=== PATIENT | male | born 1955 | race Caucasian/White ===

== ENCOUNTER 2020-09-16 09:20 | Outpatient (REF) | payer OTHER, SELFPAY ==
[2020-09-16 11:08] LABS: MANUAL DIFF FLAG NO
[2020-09-16 11:19] LABS: Basophils Absolute Auto 0.1 X10*3/uL (0.0-0.2); Basophils Percent Auto 0.7 % (0-2); Eosinophils Absolute Auto 0.2 X10*3/uL (0.0-0.4); Eosinophils Percent Auto 2.9 % (0-4); Hematocrit 46.6 % (42-52); Hemoglobin 15.5 g/dl (14.0-18.0); Imm Gran Abs Auto 0.02 X10*3/uL (0.00-0.03); Imm Gran Pct Auto 0.3 % (0.0-0.4); Lymphocytes Absolute Auto 1.9 X10*3/uL (1.2-4.9); Lymphocytes Percent Auto 27.5 % (20-40); Mean Corpuscular HGB Conc 33.3 g/dl (31.0-36.0); Mean Corpuscular Hemoglobin 31.8 pg (27.0-33.0); Mean Corpuscular Volume 95.5 fL (80-98); Mean Platelet Volume 9.1 fL (9.4-12.4); Monocytes Absolute Auto 0.5 X10*3/uL (0.1-1.2); Monocytes Percent Auto 6.5 % (2-11); Neutrophils Absolute Auto 4.3 X10*3/uL (2.0-8.3); Neutrophils Percent Auto 62.1 % (45-73); Platelet Count 269 X10*3/uL (160-400); Red Blood Count 4.88 X10*6/uL (4.60-5.80); Red Cell Distribution Width 12.1 % (11.0-16.0)
[2020-09-16 12:03] LABS: Prostate Specific Antigen 1.02 ng/mL (<0.05-4.0)
[2020-09-16 12:09] LABS: Alanine Aminotransferase 19 U/L (0-40); Albumin Level 4.4 g/dL (3.5-5.0); Alkaline Phosphatase 59 U/L (39-117); Anion Gap 13 (12-20); Aspartate Amino Transferase 20 U/L (5-37); Bilirubin Total 0.7 mg/dL (0.0-1.0); Blood Urea Nitrogen 16 mg/dL (9-16); Carbon Dioxide 27 mmol/L (22-29); Chloride 102 mmol/L (96-108); Estimated Glomerular Filt Rate > 60; Glucose Random 95 mg/dL (60-115); Potassium 4.2 mmol/L (3.3-5.1); Sodium 138 mmol/L (135-145); Total Protein 7.1 g/dL (6.5-8.0)
== END 2020-09-16 09:21 | disposition home or self-care (01) ==
LOC: HO.HMGCLDS 09:20
PROVIDERS: PCP Nurse Practitioner Family; Visit Provider Nurse Practitioner Family
DX: R10.2 Pelvic and perineal pain (principal)
CPT/HCPCS: 36415; 80053; 84153; 85025

== ENCOUNTER 2020-11-18 10:43 | Outpatient (REF) | payer OTHER, SELFPAY ==
[2020-11-18 14:23] LABS: Cholesterol 195 mg/dL; HDL Cholesterol 53 mg/dL; LDL Cholesterol Calculated 131 mg/dl; Triglycerides 57 mg/dL
[2020-11-18 14:45] LABS: TSH reflex Free T4 0.77 uIU/mL (0.32-4.0)
== END 2020-11-18 10:44 | disposition home or self-care (01) ==
LOC: HO.HMGCLDS 10:43
PROVIDERS: PCP Nurse Practitioner Family; Visit Provider Nurse Practitioner Family
DX: Z00.00 Encounter for general adult medical examination without abnormal findings (principal); Z13.29 Encounter for screening for other suspected endocrine disorder; Z13.220 Encounter for screening for lipoid disorders; Z12.5 Encounter for screening for malignant neoplasm of prostate
CPT/HCPCS: 36415; 80061; 84443

== ENCOUNTER 2021-11-22 11:14 | Outpatient (REF) | payer OTHER, SELFPAY ==
[2021-11-22 14:16] LABS: Alanine Aminotransferase 24 U/L (0-40); Albumin Level 4.5 g/dL (3.5-5.0); Alkaline Phosphatase 62 U/L (39-117); Anion Gap 11 (12-20); Aspartate Amino Transferase 22 U/L (5-37); Bilirubin Total 0.7 mg/dL (0.0-1.0); Blood Urea Nitrogen 17 mg/dL (9-16); Calcium 9.5 mg/dL (8.4-10.2); Carbon Dioxide 28 mmol/L (22-29); Chloride 105 mmol/L (96-108); Cholesterol 228 mg/dL; Estimated Glomerular Filt Rate > 60; Glucose Fasting 101 mg/dL (60-99); HDL Cholesterol 58 mg/dL; LDL Cholesterol Calculated 158 mg/dl; Potassium 5.3 mmol/L (3.3-5.1); Sodium 139 mmol/L (135-145); Total Protein 7.5 g/dL (6.5-8.0); Triglycerides 62 mg/dL
[2021-11-22 14:38] LABS: Prostate Specific Antigen Scr 1.12 ng/mL (<0.05-4.0); TSH reflex Free T4 1.01 uIU/mL (0.32-4.0)
[2021-11-22 14:47] LABS: Appearance Urine CLEAR; Color Urine YELLOW; Glucose Urine UA NEG (NEG); Leukocyte Esterase Urine NEG (NEG); Nitrite Urine NEG (NEG); Urine Blood NEG (NEG); Urine Ketones NEG (NEG); Urine Protein NEG (NEG-TRACE)
== END 2021-11-22 11:15 | disposition home or self-care (01) ==
LOC: HO.HMGCLDS 11:14
PROVIDERS: PCP Nurse Practitioner Family; Visit Provider Nurse Practitioner Family
DX: Z00.00 Encounter for general adult medical examination without abnormal findings (principal); Z12.5 Encounter for screening for malignant neoplasm of prostate
CPT/HCPCS: 36415; 80053; 80061; 81003; 84153; 84443

== ENCOUNTER 2021-11-25 11:55 | Outpatient (REF) | payer OTHER, SELFPAY ==
[2021-11-25 14:09] LABS: Anion Gap 12 (12-20); Carbon Dioxide 26 mmol/L (22-29); Chloride 103 mmol/L (96-108); Potassium 4.4 mmol/L (3.3-5.1); Sodium 137 mmol/L (135-145)
== END 2021-11-25 11:56 | disposition home or self-care (01) ==
LOC: HO.HMGCLDS 11:55
PROVIDERS: Visit Provider Nurse Practitioner Family
DX: E87.5 Hyperkalemia (principal)
CPT/HCPCS: 36415; 80051

== ENCOUNTER 2022-08-08 11:55 | Outpatient (REF) | payer OTHER, SELFPAY ==
[2022-08-08 14:00] LABS: MANUAL DIFF FLAG NO
[2022-08-08 14:10] LABS: Basophils Absolute Auto 0.1 X10*3/uL (0.0-0.2); Basophils Percent Auto 0.6 % (0-2); Eosinophils Absolute Auto 0.1 X10*3/uL (0.0-0.4); Eosinophils Percent Auto 0.6 % (0-4); Hematocrit 45.9 % (42.0-52.0); Hemoglobin 15.3 g/dl (14.0-18.0); Imm Gran Abs Auto 0.03 X10*3/uL (0.00-0.03); Imm Gran Pct Auto 0.4 % (0.0-0.4); Lymphocytes Absolute Auto 2.8 X10*3/uL (1.2-4.9); Lymphocytes Percent Auto 34.9 % (20-40); Mean Corpuscular HGB Conc 33.3 g/dl (31.0-36.0); Mean Corpuscular Hemoglobin 31.4 pg (27.0-33.0); Mean Corpuscular Volume 94.3 fL (80.0-98.0); Mean Platelet Volume 8.9 fL (9.4-12.4); Monocytes Absolute Auto 0.6 X10*3/uL (0.1-1.2); Monocytes Percent Auto 6.8 % (2-11); Neutrophils Absolute Auto 4.6 x10*3/uL (2.0-8.3); Neutrophils Percent Auto 56.7 % (45-73); Platelet Count 249 X10*3/uL (160-400); Red Blood Count 4.87 X10*6/uL (4.60-5.80); Red Cell Distribution Width 12.3 % (11.0-16.0); White Blood Count 8.1 X10*3/uL (4.8-10.8)
[2022-08-08 14:19] LABS: Appearance Urine Clear; Color Urine Yellow; Glucose Urine UA Negative (Negative); Leukocyte Esterase Urine Negative (Negative); Nitrite Urine Negative (Negative); Specific Gravity - Urine 1.015 (1.005-1.025); Urine Blood Negative (Negative); Urine Ketones Negative (Negative); Urine Protein Negative (Neg-Trace)
[2022-08-08 14:32] LABS: Alanine Aminotransferase 24 U/L (0-40); Albumin Level 4.6 g/dL (3.5-5.0); Alkaline Phosphatase 67 U/L (39-117); Anion Gap 14 (12-20); Aspartate Amino Transferase 21 U/L (5-37); Bilirubin Total 0.8 mg/dL (0.0-1.0); Blood Urea Nitrogen 16 mg/dL (9-16); Calcium 9.1 mg/dL (8.4-10.2); Carbon Dioxide 25 mmol/L (22-29); Chloride 105 mmol/L (96-108); Cholesterol 136 mg/dL; Estimated Glomerular Filt Rate > 60; Glucose Fasting 101 mg/dL (60-99); HDL Cholesterol 52 mg/dL; LDL Cholesterol Calculated 75 mg/dl; Potassium 4.4 mmol/L (3.3-5.1); Sodium 140 mmol/L (135-145); Total Protein 7.2 g/dL (6.5-8.0); Triglycerides 48 mg/dL
[2022-08-08 14:40] LABS: Prostate Specific Antigen Scr 1.16 ng/mL (<0.05-4.0); TSH reflex Free T4 1.24 uIU/mL (0.32-4.0)
== END 2022-08-08 11:56 | disposition home or self-care (01) ==
LOC: HO.HMGCLDS 11:55
PROVIDERS: PCP Nurse Practitioner Family; Visit Provider Nurse Practitioner Family
DX: I10 Essential (primary) hypertension (principal); R33.9 Retention of urine, unspecified; Z12.5 Encounter for screening for malignant neoplasm of prostate
CPT/HCPCS: 36415; 80053; 80061; 81003; 84153; 84443; 85025

== ENCOUNTER → 2022-08-30 09:48 | Outpatient (BNVA) | payer OTHER, SELFPAY | PROVIDERS: PCP Nurse Practitioner Family; Visit Provider Nurse Practitioner Family | DX: R10.2 Pelvic and perineal pain (principal) | CPT/HCPCS: 51798 ==

== ENCOUNTER 2022-12-01 10:02 | Outpatient (REF) | payer MEDICARE, SELFPAY ==
--- NOTE | ~2022-12-01 | US_ITS ---
EXAMINATION: US RETROPERITONEAL COMPLETE (RENAL) CLINICAL INFORMATION: Retention of urine, unspecified. COMPARISON: CT abdomen and pelvis 07/04/2017. TECHNIQUE: Real-time imaging of the kidneys and bladder. FINDINGS: RIGHT KIDNEY: 11.0 x 6.3 x 6.2 cm (SAG x AP x TRV). The kidney is normal in size, contour, and echogenicity. Renal cortical thickness is normal. No calculi or focal parenchymal lesions. No hydronephrosis. LEFT KIDNEY: 11.8 x 5.5 x 5.4 cm (SAG x AP x TRV). The kidney is normal in size, contour, and echogenicity. Renal cortical thickness is normal. No calculi or focal parenchymal lesions. No hydronephrosis. BLADDER: Well distended and normal. Bilateral ureteral jets are demonstrated. Prevoid bladder volume is 593 mL. Postvoid bladder volume is 71 mL. ADDITIONAL FINDINGS: Prostate dimensions are 7.2 x 2.9 x 4.0 cm (volume 45.0 mL). US/US retroperitoneal comp IMPRESSION: 1. Unremarkable ultrasound appearance of the kidneys. 2. There is a borderline increased postvoid residual volume. 3. There is prostatomegaly.
== END 2022-12-01 10:03 | disposition home or self-care (01) ==
LOC: HO.US 10:02
PROVIDERS: PCP Nurse Practitioner Family; Visit Provider Nurse Practitioner Family
DX: R33.9 Retention of urine, unspecified (principal)
CPT/HCPCS: 76770

== ENCOUNTER → 2022-12-13 10:24 | Outpatient (BNVA) | payer MEDICARE, SELFPAY | PROVIDERS: PCP Nurse Practitioner Family; Visit Provider Nurse Practitioner Family | DX: N40.0 Benign prostatic hyperplasia without lower urinary tract symptoms (principal) | CPT/HCPCS: 99212 ==

== ENCOUNTER 2023-01-17 08:23 | Outpatient (REF) | payer MEDICARE, SELFPAY ==
[2023-01-17 11:23] LABS: MANUAL DIFF FLAG NO
[2023-01-17 11:42] LABS: Basophils Absolute Auto 0.1 X10*3/uL (0.0-0.2); Basophils Percent Auto 0.7 % (0-2); Eosinophils Absolute Auto 0.2 X10*3/uL (0.0-0.4); Eosinophils Percent Auto 2.2 % (0-4); Hematocrit 42.6 % (42.0-52.0); Hemoglobin 14.2 g/dl (14.0-18.0); Imm Gran Abs Auto 0.02 X10*3/uL (0.00-0.03); Imm Gran Pct Auto 0.3 % (0.0-0.4); Lymphocytes Absolute Auto 2.9 X10*3/uL (1.2-4.9); Lymphocytes Percent Auto 42.3 % (20-40); Mean Corpuscular HGB Conc 33.3 g/dl (31.0-36.0); Mean Corpuscular Hemoglobin 31.8 pg (27.0-33.0); Mean Corpuscular Volume 95.3 fL (80.0-98.0); Monocytes Absolute Auto 0.6 X10*3/uL (0.1-1.2); Monocytes Percent Auto 8.7 % (2-11); Neutrophils Absolute Auto 3.1 x10*3/uL (2.0-8.3); Neutrophils Percent Auto 45.8 % (45-73); Platelet Count 232 X10*3/uL (160-400); Red Blood Count 4.47 X10*6/uL (4.60-5.80); Red Cell Distribution Width 12.7 % (11.0-16.0); White Blood Count 6.8 X10*3/uL (4.8-10.8)
[2023-01-17 11:56] LABS: Appearance Urine Turbid; Color Urine Yellow; Glucose Urine UA Negative (Negative); Leukocyte Esterase Urine Negative (Negative); Nitrite Urine Negative (Negative); Specific Gravity - Urine >= 1.030 (1.005-1.025); Urine Blood Negative (Negative); Urine Ketones Negative (Negative); Urine Protein Negative (Neg-Trace)
[2023-01-17 12:28] LABS: Alanine Aminotransferase 21 U/L (0-40); Albumin Level 4.2 g/dL (3.5-5.0); Alkaline Phosphatase 55 U/L (39-117); Anion Gap 13 (12-20); Aspartate Amino Transferase 25 U/L (5-37); Bilirubin Total 0.9 mg/dL (0.0-1.0); Blood Urea Nitrogen 27 mg/dL (9-16); Calcium 9.3 mg/dL (8.4-10.2); Carbon Dioxide 24 mmol/L (22-29); Chloride 105 mmol/L (96-108); Cholesterol 146 mg/dL; Estimated Glomerular Filt Rate > 60; Glucose Fasting 102 mg/dL (60-99); HDL Cholesterol 50 mg/dL; LDL Cholesterol Calculated 87 mg/dl; Sodium 138 mmol/L (135-145); TSH reflex Free T4 1.18 uIU/mL (0.32-4.0); Triglycerides 49 mg/dL
== END 2023-01-17 08:24 | disposition home or self-care (01) ==
LOC: HO.HMGCLDS 08:23
PROVIDERS: PCP Nurse Practitioner Family; Visit Provider Nurse Practitioner Family
DX: Z00.00 Encounter for general adult medical examination without abnormal findings (principal); E78.5 Hyperlipidemia, unspecified; R53.83 Other fatigue; I10 Essential (primary) hypertension
CPT/HCPCS: 36415; 80053; 80061; 81003; 84443; 85025

== ENCOUNTER 2023-07-03 09:16 | Outpatient (AMB) | payer MEDICARE, SELFPAY ==
--- NOTE | 2023-07-03 09:23 | MHC.PC.OV ---
Vital Signs 07/03/23 09:28 07/03/23 09:50 Height 5 ft 8 in Weight 189 lb BMI 28.7 BP 132/90 H 140/90 H Blood Pressure Location Lt brachial Rt brachial Position Sitting Sitting Pulse 74 Pulse Source Pulse Oximeter Pulse Oximetry (%) 98 Oxygen Delivery Method Room Air Intake Visit Reasons: 6 month follow up Intake Note: Pt is here today for his6 mo. /u Allergies No Known Allergies Allergy (Mild, Verified 07/03/23 09:24) NOT APPLICABLE Medication List - Last Reconciled 07/03/23 by Amol Lanza [facility] irbesartan 75 mg PO DAILY rosuvastatin (Crestor) 10 mg PO BEDTIME 30 days Tobacco use date assessed: 07/03/23 Fall risk assessment: No Falls in past year Last assessed Fall Risk: 07/03/23 Dental Screening Dental Screen Date: 07/03/23 Did you have a dental visit in the last 12 months?: Yes Did you have a dental problem in the last 6 months where you did not have access to dental care?: No Was dental information given to patient?: Patient has dentist HPI 6 month follow up HPI Details HTN: Blood pressure is managed with irbesartan 75mg. Blood pressure is elevated today. Will have pt monitor his blood pressure at home and drop off/send readings. Denies chest pain, shortness of breath, headache, dizziness, and blurred vision. refused pneumo vaccine and shingles vaccination. [facility] Social History Housing: House Patient Tobacco Use Status: Former Tobacco user Tobacco use type: Cigarette (quit 30years ago ) and Cigar (quit 5 years ago ) e-Cigarette/Vaping Use: Currently Using Second Hand Smoke Exposure: No service: No Current occupational status: retired Cognitive needs: No Hearing needs: No Vision needs: Yes Questionnaire PHQ-9 Over the last 2 weeks, how often have you been bothered by any of the following problems? 1. Little interest or pleasure in doing things: not at all 2. Feeling down, depressed, or hopeless: not at all 3. Trouble falling or staying asleep, or sleeping too much: not at all 4. Feeling tired or having little energy: not at all 5. Poor appetite or overeating: not at all 6. Feeling bad about yourself - or that you are a failure or have let yourself or your family down: not at all 7. Trouble concentrating on things, such as reading the newspaper or watching television: not at all 8. Moving or speaking so slowly that other people could have noticed. Or the opposite - being so fidgety or restless that you have been moving around a lot more than usual: not at all 9. Thoughts that you would be better off or of hurting yourself in some way: not at all Total score: 0 Source: Developed by Drs. Evaristo Nice, Nirali Sampson, David Garces and colleagues, with an educational aeltha from [employer] Thrive Questionnaire Date Thrive assessed: 07/03/23 I am a: Patient What is your living situation today?: I have a steady place to live Within the past 12 months, did the food you bought not last and you didn't have the money to get more?: Never true Within the past 12 months, did you worry whether your food would run out before you got money to buy more?: Never true Do you have trouble paying for medicines?: No Do you have trouble getting transportation to medical appointments?: No Do you have trouble paying your heating and electricity bill?: No Do you have trouble taking care of your child, family member or friend?: No Do you have trouble with day-to-day activities such as bathing, preparing meals, shopping, managing finances, etc.?: No Are you currently unemployed and looking for a job?: No Are you interested in more education?: No Currently or been in a relationship where the following occur: no concerns reported AUDIT C Alcohol Use Questionnaire (AUDIT-C) 1. How often do you have a drink containing alcohol?: 2-3 times a week 2. How many drinks containing alcohol do you have on a typical day when you are drinking?: 1 or 2 3. How often do you have six or more drinks on one occasion?: Never Total Score: 3 Score Reviewed/Action Taken: Yes SABRA-7 AMB Questionnaire SABRA-7 Date SABRA - 7 assessed: 07/03/23 Feeling nervous, anxious, or on edge: 0 = Not at all Not being able to stop or control worryin = Not at all Worrying too much about different things: 0 = Not at all Trouble relaxin = Not at all Being so restless that it is hard to sit still: 0 = Not at all Becoming easily annoyed or irritable: 0 = Not at all Feeling afraid as if something awful might happen: 0 = Not at all Total SABRA-7 score (0-4 normal; 5-9 mild; 10-14 moderate; 15-21 severe): 0 Source: Developed by Drs. Evaristo Nice, Nirali Sampson, David Garces and colleagues, with an educational aletha from [employer] Review of Systems Const Reports as per HPI Physical exam (Primary Care) Vital Signs: Last Vital Signs Pulse 74 07/03/23 09:28 BP 132/90 H 07/03/23 09:28 Pulse Ox 98 07/03/23 09:28 Oxygen Delivery Method Room Air 07/03/23 09:28 BMI result Body Mass Index 28.7 Tobacco/Smoking Status: Tobacco use Status Tobacco use date assessed 07/03/23 07/03/23 09:26 Patient Tobacco Use Status Former Tobacco user 07/03/23 09:26 Tobacco use type Cigarette (quit 30years ago 07/03/23 09:26 ),Cigar (quit 5 years ago ) e-Cigarette/Vaping Use Currently Using 07/03/23 09:26 PHQ-9: PHQ-9 Score PHQ-9: Total score 0 07/03/23 09:36 Thrive Assessment: Date of Thrive Assessment Date Thrive assessed 07/03/23 07/03/23 09:31 Currently or been in a relationship where the following occur: no concerns reported Const General: cooperative Orientation/consciousness: patient oriented x3 Resp Effort & Inspection: normal respiratory effort Auscultation: clear to auscultation bilaterally Cardio Rate: regular rate Rhythm: regular rhythm Heart sounds: S1 normal heart sound present and S2 normal heart sound present Neuro General: patient oriented x3 Extrem Right lower extremity: no edema Left lower extremity: no edema Psych Appearance: grossly normal Mental Status: mental status grossly normal Speech and movement: Normal speech and movement present Affect: normal affect Attitude: cooperative Thought process: Normal thought process present Thought content: Normal thought content present Insight: Good insight present (Psych) Judgement: Good judgement present (Psych) Assessment and Plan Assessment & Plan (1) HTN (hypertension): Code(s): I10 - Essential (primary) hypertension Plan: Pt will monitor his BP at home and record readings Plan The patient agreed to the use of a medical care evaluation specialist for this encounter. Scribed for ABELARDO Alfonso by Chelo Mc medical care evaluation specialist, on 07/03/2023 at 09:40 EST. Orders: Orders TSH reflex Free T4 Today I10 - Essential (primary) hypertension UA CC w/rflx Micro + Cult Today I10 - Essential (primary) hypertension Lipid Panel Today I10 - Essential (primary) hypertension Complete Blood Count Auto Diff Today I10 - Essential (primary) hypertension Comprehensive [place]. Panel Fast Today I10 - Essential (primary) hypertension Coding Level of Care Code Est Pt Level 3 (07739) Diagnoses HTN (hypertension) I10
[2023-07-03 09:28] VITALS: BP 132/90; PULSE 74; O2SAT 98; BMI 28.7
[2023-07-03 09:50] VITALS: BP 140/90
== END 2023-07-03 09:54 | disposition home or self-care (01) ==
PROVIDERS: Visit Provider Nurse Practitioner Family
DX: I10 Essential (primary) hypertension (principal)
CPT/HCPCS: 99213

== ENCOUNTER 2023-07-03 09:56 | Outpatient (REF) | payer MEDICARE, SELFPAY ==
[2023-07-03 13:49] LABS: MANUAL DIFF FLAG NO
[2023-07-03 14:02] LABS: Basophils Absolute Auto 0.1 X10*3/uL (0.0-0.2); Basophils Percent Auto 0.8 % (0-2); Eosinophils Absolute Auto 0.1 X10*3/uL (0.0-0.4); Eosinophils Percent Auto 1.5 % (0-4); Hemoglobin 14.6 g/dl (14.0-18.0); Imm Gran Abs Auto 0.03 X10*3/uL (0.00-0.03); Imm Gran Pct Auto 0.5 % (0.0-0.4); Lymphocytes Absolute Auto 2.1 X10*3/uL (1.2-4.9); Lymphocytes Percent Auto 33.3 % (20-40); Mean Corpuscular HGB Conc 33.2 g/dl (31.0-36.0); Mean Corpuscular Hemoglobin 31.6 pg (27.0-33.0); Mean Corpuscular Volume 95.2 fL (80.0-98.0); Mean Platelet Volume 9.1 fL (9.4-12.4); Monocytes Absolute Auto 0.5 X10*3/uL (0.1-1.2); Monocytes Percent Auto 7.5 % (2-11); Neutrophils Absolute Auto 3.5 x10*3/uL (2.0-8.3); Neutrophils Percent Auto 56.4 % (45-73); Platelet Count 268 X10*3/uL (160-400); Red Blood Count 4.62 X10*6/uL (4.60-5.80); Red Cell Distribution Width 12.1 % (11.0-16.0); White Blood Count 6.2 X10*3/uL (4.8-10.8)
[2023-07-03 14:05] LABS: Appearance Urine Turbid; Color Urine Yellow; Glucose Urine UA Negative (Negative); Leukocyte Esterase Urine Negative (Negative); Nitrite Urine Negative (Negative); Specific Gravity - Urine >= 1.030 (1.005-1.025); Urine Blood Negative (Negative); Urine Ketones Negative (Negative); Urine Protein Trace mg/dL (Neg-Trace)
[2023-07-03 14:15] LABS: Alanine Aminotransferase 22 U/L (0-40); Albumin Level 4.2 g/dL (3.5-5.0); Alkaline Phosphatase 53 U/L (39-117); Anion Gap 13 (12-20); Aspartate Amino Transferase 21 U/L (5-37); Bilirubin Total 0.5 mg/dL (0.0-1.0); Blood Urea Nitrogen 20 mg/dL (9-16); Calcium 8.9 mg/dL (8.4-10.2); Carbon Dioxide 25 mmol/L (22-29); Chloride 106 mmol/L (96-108); Cholesterol 137 mg/dL (<200); Estimated Glomerular Filt Rate > 60; Glucose Fasting 100 mg/dL (60-99); HDL Cholesterol 48 mg/dL (>40); LDL Cholesterol Calculated 80 mg/dL (<100); Potassium 4.3 mmol/L (3.3-5.1); Sodium 140 mmol/L (135-145); Total Protein 7.1 g/dL (6.5-8.0); Triglycerides 46 mg/dL (<150)
[2023-07-03 14:32] LABS: TSH reflex Free T4 1.51 uIU/mL (0.32-4.0)
== END 2023-07-03 09:57 | disposition home or self-care (01) ==
LOC: HO.HMGCLDS 09:56
PROVIDERS: PCP Nurse Practitioner Family; Visit Provider Nurse Practitioner Family
DX: I10 Essential (primary) hypertension (principal)
CPT/HCPCS: 36415; 80053; 80061; 81003; 84443; 85025

== ENCOUNTER 2023-11-23 10:54 | Outpatient (REF) | payer MEDICARE, SELFPAY ==
[2023-11-23 14:28] LABS: Prostate Specific Antigen 0.83 ng/mL (<0.05-4.0)
== END 2023-11-23 10:55 | disposition home or self-care (01) ==
LOC: HO.HMGCLDS 10:54
PROVIDERS: PCP Nurse Practitioner Family; Visit Provider Nurse Practitioner Family
DX: Z00.00 Encounter for general adult medical examination without abnormal findings (principal); N40.0 Benign prostatic hyperplasia without lower urinary tract symptoms; Z12.5 Encounter for screening for malignant neoplasm of prostate
CPT/HCPCS: 36415; 84153

== ENCOUNTER 2023-11-29 10:14 | Outpatient (AMB) | payer MEDICARE, SELFPAY ==
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
[2023-11-29 10:20] VITALS: BP 118/80; PULSE 78; O2SAT 99; BMI 29.0
== END 2023-11-29 10:56 | disposition home or self-care (01) ==
PROVIDERS: Visit Provider Nurse Practitioner Family
DX: Z00.00 Encounter for general adult medical examination without abnormal findings (principal); Z12.11 Encounter for screening for malignant neoplasm of colon; S69.92XA Unspecified injury of left wrist, hand and finger(s), initial encounter
CPT/HCPCS: 99397

== ENCOUNTER 2023-12-13 09:18 | Outpatient (AMB) | payer MEDICARE, SELFPAY ==
--- NOTE | 2023-12-13 09:23 | MHC.OFFVIS ---
Intake Visit Reasons: follow up/PVR(set) Intake Note: Patient is present for follow up incomplete bladder emptying Urology Medications: none Blood Thinner: none PVR: 47ml's Accountant Certified Public Required: No Accompanied by: Self / Same As Patient Allergies No Known Allergies Allergy (Mild, Verified 12/13/23 18:30) NOT APPLICABLE Medication List - Last Reconciled 12/13/23 by LETY HernandezP- irbesartan 75 mg PO DAILY rosuvastatin (Crestor) 10 mg PO BEDTIME 30 days HPI Comments Details: Edward is a pleasant 68-year-old male patient of Dr. Lanza. Patient presents to the office today for a follow-up of his lower urinary tract symptoms. In discussion with the patient today he reports to be doing and feeling well. He does report weak urinary stream at times however does not find this bothersome. He currently denies any urinary issues or concerns. Previous workup has included a retroperitoneal ultrasound noting bilateral kidneys with no lesions, calculi, or hydronephrosis noted. The bladder is well distended and normal. Bilateral ureteral jets are demonstrated. Pre void bladder volume approximately 600ml pre void bladder volume approximately 70 mL. Prostate volume approximately 45ml. In office urinalysis results reviewed with the patient today. PVR 47 mL. Recent PSA results reviewed with the patient today as noted and trended below. PSAs: 09/20 1.0, 11/19 1.1, 08/22 1.2, 11/21 0.8 Patient denies urinary urgency, urinary frequency, incontinence, nocturia, hematuria, dysuria, foul smelling urine, flank pain, fever, and or chills. He is happy with his current voiding parameters. He does endorse to waking up one time per night to urinate however does not find this bothersome. He otherwise offers no other issues or concerns at this time. [facility] Social History Housing: House Patient Tobacco Use Status: Former Tobacco user Tobacco use type: Cigarette (quit 30years ago ) and Cigar (quit 5 years ago ) e-Cigarette/Vaping Use: Currently Using Second Hand Smoke Exposure: No service: No Current occupational status: retired Cognitive needs: No Hearing needs: No Vision needs: Yes Review of Systems Const Reports no additional complaints Eyes Reports no additional complaints ENT Reports no additional complaints Card Reports no additional complaints Resp Reports no additional complaints GI Reports no additional complaints Reports as per HPI Musc Reports no additional complaints Neuro Reports no additional complaints Psych Reports no additional complaints Endo Reports no additional complaints Van/Lymph Reports no additional complaints Aller/Immun Reports no additional complaints Physical Exam Const General: cooperative, healthy appearing, comfortable, no acute distress, well developed, alert and awake Orientation/consciousness: patient oriented x3 Limitations: no limitations HEENT Head: Yes normal to inspection, Yes normocephalic and Yes atraumatic Ears: hearing grossly normal bilaterally Eyes General: appearance normal, both eyes and all related structures Neck Neck: Yes normal visual inspection and Yes trachea midline Chest Chest palpation & inspection: normal inspection of the chest Resp Effort & Inspection: normal respiratory effort and able to speak in complete sentences Cardio Rate: regular rate GI Inspection: Yes normal to inspection General: Yes no CVA tenderness Back/Spine/Pelvis Back: no CVA tenderness Skin General skin exam: no rashes or lesions noted Neuro General: patient oriented x3 Extrem General: Yes normal to inspection Psych Appearance: grossly normal and well kempt Mental Status: mental status grossly normal Speech and movement: Normal speech and movement present and Clear speech present Affect: normal affect Attitude: cooperative Thought process: Normal thought process present Thought content: Normal thought content present Insight: Fair insight present (Psych) Judgement: Fair judgement present (Psych) Office Procedures Post Void Residual Post Residual Void Post Void Residual (PVR): 47 [id number] Void Residual by ultrasound Results AMB Urinalysis, Automated UA Leukoctes 0 Shabnam/uL Last Edit by [email or web address] on 12/13/23 09:43 UA Nitrite Negative Last Edit by [email or web address] on 12/13/23 09:43 UA Urobilinogen 0.2 mg/dL Last Edit by [email or web address] on 12/13/23 09:43 UA Protein 0 mg/dL Last Edit by [email or web address] on 12/13/23 09:43 UA pH 6.0 Last Edit by [email or web address] on 12/13/23 09:43 UA Blood 0 Aman/uL Last Edit by [email or web address] on 12/13/23 09:43 UA Specific [place] 1.015 Last Edit by [email or web address] on 12/13/23 09:43 UA Ketone Negative Last Edit by Kelsie Araujo on 12/13/23 09:43 UA Bilirubin 0 mg/dL Last Edit by Kelsie Araujo on 12/13/23 09:43 UA Glucose 0 mg/dL Last Edit by Kelsie Araujo on 12/13/23 09:43 Results Reviewed Results Reviewed: Laboratory Last Values Urine pH (Auto) 6.0 12/13/23 09:24 [place] (Auto) 1.015 12/13/23 09:24 Urine Protein (Auto) 0 mg/dL 12/13/23 09:24 Glucose (UA)(Auto) 0 mg/dL 12/13/23 09:24 Urine Ketones (Auto) Negative 12/13/23 09:24 Urine Blood (Auto) 0 Aman/uL 12/13/23 09:24 Urine Nitrite (Auto) Negative 12/13/23 09:24 Urine Bilirubin (Auto) 0 mg/dL 12/13/23 09:24 Urine Urobilinogen (Auto) 0.2 mg/dL 12/13/23 09:24 Leukocyte Esterase (Auto) 0 Shabnam/uL 12/13/23 09:24 Assessment & Plan Assessment & Plan (1) BPH (benign prostatic hyperplasia): Code(s): N40.0 - Benign prostatic hyperplasia without lower urinary tract symptoms Plan In office urinalysis results reviewed with the patient today. PVR 47 mLs. Patient denies any issues or concerns at this time. He reports be happy with current voiding parameters. Discussed possible near future in office cystoscopy if symptoms arise Recent PSA results reviewed with the patient today, as noted above. Follow-up in 6 months with PVR; or sooner with any issues, concerns, and or questions. Orders: Orders AMB Post Void Residual by ultrasound Today R33.9 - Retention of urine, unspecified AMB Urinalysis Automated Today Z13.9 - Encounter for screening, unspecified Patient Instructions: The patient had an opportunity to ask questions regarding the treatment plan. All questions were answered. Physical exam, labs, and imaging were discussed and reviewed in detail. As well as risks, benefits, and discussion of treatment choices. No major barriers to understanding were identified. The patient expressed understanding and agreement with the above treatment plan. The patient was made aware they should contact our office by phone for worsening of their current condition, the appearance of new symptoms, or with any questions or concerns. Compliance is encouraged with any medications and follow up testing that is ordered. It is a privilege to be allowed the opportunity to participate in? your urological care.? Again, if you have any questions or concerns If you have any questions or concerns please do not hesitate to contact me. The office is [phone]. This note is constructed using voice recognition software. While every effort has been made to ensure accuracy carbon capture power plant manager errors may have been included. Yours sincerely, ABELARDO Hernandez Coding Level of Care Code Est Pt Level 3 (37700) Diagnoses BPH (benign prostatic hyperplasia) N40.0 CPT Codes Post Residual Void - PVR CPT Code: 63974-Vzng Void Residual by ultrasound ([id number])
== END 2023-12-13 10:05 | disposition home or self-care (01) ==
PROVIDERS: Visit Provider Nurse Practitioner Family
DX: N40.0 Benign prostatic hyperplasia without lower urinary tract symptoms (principal); Z13.9 Encounter for screening, unspecified
CPT/HCPCS: 99213

== ENCOUNTER → 2023-12-13 09:18 | Outpatient (BNVA) | payer MEDICARE, SELFPAY | PROVIDERS: Visit Provider Nurse Practitioner Family | DX: N40.0 Benign prostatic hyperplasia without lower urinary tract symptoms (principal) | CPT/HCPCS: 51798; 81003; 99212 ==

== ENCOUNTER 2023-12-19 11:16 | Outpatient (REF) | payer MEDICARE, SELFPAY ==
[2023-12-19 13:07] LABS: MANUAL DIFF FLAG NO
[2023-12-19 13:28] LABS: Basophils Absolute Auto 0.1 X10*3/uL (0.0-0.2); Basophils Percent Auto 0.7 % (0-2); Eosinophils Absolute Auto 0.2 X10*3/uL (0.0-0.4); Eosinophils Percent Auto 2.2 % (0-4); Hematocrit 41.9 % (42.0-52.0); Hemoglobin 14.6 g/dl (14.0-18.0); Imm Gran Abs Auto 0.02 X10*3/uL (0.00-0.03); Imm Gran Pct Auto 0.3 % (0.0-0.4); Lymphocytes Absolute Auto 2.8 X10*3/uL (1.2-4.9); Lymphocytes Percent Auto 40.6 % (20-40); Mean Corpuscular HGB Conc 34.8 g/dl (31.0-36.0); Mean Corpuscular Hemoglobin 32.2 pg (27.0-33.0); Mean Corpuscular Volume 92.3 fL (80.0-98.0); Mean Platelet Volume 8.9 fL (9.4-12.4); Monocytes Absolute Auto 0.5 X10*3/uL (0.1-1.2); Monocytes Percent Auto 7.5 % (2-11); Neutrophils Absolute Auto 3.3 x10*3/uL (2.0-8.3); Neutrophils Percent Auto 48.7 % (45-73); Platelet Count 245 X10*3/uL (160-400); Red Blood Count 4.54 X10*6/uL (4.60-5.80); Red Cell Distribution Width 12.4 % (11.0-16.0); White Blood Count 6.8 X10*3/uL (4.8-10.8)
[2023-12-19 13:56] LABS: Alanine Aminotransferase 21 U/L (0-40); Albumin Level 4.2 g/dL (3.5-5.0); Alkaline Phosphatase 52 U/L (39-117); Anion Gap 14 (12-20); Aspartate Amino Transferase 19 U/L (5-37); Bilirubin Total 0.6 mg/dL (0.0-1.0); Blood Urea Nitrogen 19 mg/dL (9-16); Calcium 9.3 mg/dL (8.4-10.2); Carbon Dioxide 23 mmol/L (22-29); Chloride 106 mmol/L (96-108); Cholesterol 121 mg/dL (<200); Estimated Glomerular Filt Rate > 60; Glucose Fasting 98 mg/dL (60-99); HDL Cholesterol 48 mg/dL (>40); LDL Cholesterol Calculated 64 mg/dL (<100); Potassium 4.2 mmol/L (3.3-5.1); Sodium 139 mmol/L (135-145); Triglycerides 49 mg/dL (<150)
[2023-12-19 14:00] LABS: TSH reflex Free T4 0.77 uIU/mL (0.32-4.0)
== END 2023-12-19 11:17 | disposition home or self-care (01) ==
LOC: HO.HMGCLDS 11:16
PROVIDERS: PCP Nurse Practitioner Family; Visit Provider Nurse Practitioner Family
DX: Z00.00 Encounter for general adult medical examination without abnormal findings (principal); Z20.2 Contact with and (suspected) exposure to infections with a predominantly sexual mode of transmission
CPT/HCPCS: 36415; 80053; 80061; 84443; 85025

== ENCOUNTER 2024-07-02 09:20 | Outpatient (AMB) | payer MEDICARE, SELFPAY ==
--- NOTE | 2024-07-02 09:36 | A.OFFVIS_ITS ---
Intake Visit Reasons: 6m/PVR Intake Note: Patient presents today for follow up on : incomplete bladder emptying Urology Medications: none Blood Thinner: none PVR: 69ml's Marketing Operations Assistant Required: No Accompanied by: Self / Same As Patient Allergies No Known Allergies Allergy (Mild, Verified 07/02/24 10:55) NOT APPLICABLE Medication List - Last Reconciled 07/02/24 by LUDY Hernandez- irbesartan 75 mg PO DAILY rosuvastatin (Crestor) 10 mg PO BEDTIME 30 days HPI Comments Details: Edward is a pleasant 68-year-old male patient of Dr. Lanza. He presents to the office today for a follow-up of his lower urinary tract symptoms. In discussion with the patient today he reports to be doing and feeling well. When asked he continues to report weak urinary stream however does not wish to further undergo any other treatment options at this time as he does not find this issue to be bothersome. He otherwise denies any bothersome urinary issues. Previous workup has included a retroperitoneal ultrasound noting bilateral kidneys with no lesions, calculi, or hydronephrosis noted. The bladder is well distended and normal. Bilateral ureteral jets are demonstrated. Pre void bladder volume approximately 600ml pre void bladder volume approximately 70 mL. Prostate volume approximately 45ml. In office urinalysis results reviewed with the patient today. PVR mL. Recent PSA results reviewed with the patient today as noted and trended below. PSAs: 09/20 1.0, 11/19 1.1, 08/22 1.2, 11/21 0.8 Patient denies urinary urgency, urinary frequency, incontinence, nocturia, hematuria, dysuria, foul smelling urine, flank pain, fever, and or chills. He is happy with his current voiding parameters. He does endorse to waking up one time per night to urinate however does not find this bothersome. We discussed further treatment options to include trial of alpha-mendel and or in office cystoscopy for further assessment evaluation. He does not wish to undergo further treatment options at this time. He otherwise offers no other issues or concerns at this time. [facility] Social History Housing: House Patient Tobacco Use Status: Former Tobacco user Tobacco use type: Cigarette (quit 30years ago ) and Cigar (quit 5 years ago ) e-Cigarette/Vaping Use: Currently Using Second Hand Smoke Exposure: No service: No Current occupational status: retired Cognitive needs: No Hearing needs: No Vision needs: Yes Review of Systems Const Reports no additional complaints Eyes Reports no additional complaints ENT Reports no additional complaints Card Reports no additional complaints Resp Reports no additional complaints GI Reports no additional complaints Reports as per HPI Musc Reports no additional complaints Neuro Reports no additional complaints Psych Reports no additional complaints Endo Reports no additional complaints Van/Lymph Reports no additional complaints Aller/Immun Reports no additional complaints Physical Exam Const General: cooperative, healthy appearing, comfortable, no acute distress, well developed, alert and awake Orientation/consciousness: patient oriented x3 Limitations: no limitations HEENT Head: Yes normal to inspection, Yes normocephalic and Yes atraumatic Ears: hearing grossly normal bilaterally Eyes General: appearance normal, both eyes and all related structures Neck Neck: Yes normal visual inspection and Yes trachea midline Chest Chest palpation & inspection: normal inspection of the chest Resp Effort & Inspection: normal respiratory effort and able to speak in complete sentences Cardio Rate: regular rate GI Inspection: Yes normal to inspection General: Yes no CVA tenderness Back/Spine/Pelvis Back: no CVA tenderness Skin General skin exam: no rashes or lesions noted Neuro General: patient oriented x3 Extrem General: Yes normal to inspection Psych Appearance: grossly normal and well kempt Mental Status: mental status grossly normal Speech and movement: Normal speech and movement present and Clear speech present Affect: normal affect Attitude: cooperative Thought process: Normal thought process present Thought content: Normal thought content present Insight: Fair insight present (Psych) Judgement: Fair judgement present (Psych) Office Procedures Post Void Residual Post Residual Void Post Void Residual (PVR): 69 [id number] Void Residual by ultrasound Results AMB Urinalysis, Automated UA Leukoctes 0 Shabnam/uL Last Edit by Kelsie Araujo on 07/02/24 10:58 UA Nitrite Last Edit by Kelsie Araujo on 07/02/24 10:58 UA Urobilinogen 0.2 mg/dL Last Edit by Kelsie Araujo on 07/02/24 10:58 UA Protein 0 mg/dL Last Edit by Kelsie Araujo on 07/02/24 10:58 UA pH 6.0 Last Edit by Kelsie Araujo on 07/02/24 10:58 UA Blood 0 Aman/uL Last Edit by Kelsie Araujo on 07/02/24 10:58 UA Specific [place] 1.025 Last Edit by Kelsie Araujo on 07/02/24 10:58 UA Ketone Negative Last Edit by Kelsie Araujo on 07/02/24 10:58 UA Bilirubin 0 mg/dL Last Edit by Kelsie Araujo on 07/02/24 10:58 UA Glucose 0 mg/dL Last Edit by Kelsie Araujo on 07/02/24 10:58 Results Reviewed Results Reviewed: Laboratory Last Values Urine pH (Auto) 6.0 07/02/24 10:56 Specific [place] (Auto) 1.025 07/02/24 10:56 Urine Protein (Auto) 0 mg/dL 07/02/24 10:56 Glucose (UA)(Auto) 0 mg/dL 07/02/24 10:56 Urine Ketones (Auto) Negative 07/02/24 10:56 Urine Blood (Auto) 0 Aman/uL 07/02/24 10:56 Urine Bilirubin (Auto) 0 mg/dL 07/02/24 10:56 Urine Urobilinogen (Auto) 0.2 mg/dL 07/02/24 10:56 Leukocyte Esterase (Auto) 0 Shabnam/uL 07/02/24 10:56 Assessment & Plan Assessment & Plan (1) BPH (benign prostatic hyperplasia): Code(s): N40.0 - Benign prostatic hyperplasia without lower urinary tract symptoms (2) Weak urinary stream: Code(s): R39.12 - Poor urinary stream Category: Medical Plan In office urinalysis results reviewed with the patient today. PVR 67 mLs. He reports be happy with current voiding parameters. Will continue with surveillance monitoring as patient does not wish to undergo further treatment options at this time. Discussed possible near future in office cystoscopy for further assessment evaluation. Discussed bladder triggers/irritants. Discussed attempting to sit when voiding to relax pelvis Follow-up in 6 months with PVR and PSA; or sooner with any issues, concerns, and or questions. Orders: Orders Prostate Specific Antigen 6 Months R33.9 - Retention of urine, unspecified AMB Urinalysis Automated Today Z13.9 - Encounter for screening, unspecified AMB Post Void Residual by ultrasound Today R33.9 - Retention of urine, unspecified Patient Instructions: The patient had an opportunity to ask questions regarding the treatment plan. All questions were answered. Physical exam, labs, and imaging were discussed and reviewed in detail. As well as risks, benefits, and discussion of treatment choices. No major barriers to understanding were identified. The patient expressed understanding and agreement with the above treatment plan. The patient was made aware they should contact our office by phone for worsening of their current condition, the appearance of new symptoms, or with any questions or concerns. Compliance is encouraged with any medications and follow up testing that is ordered. It is a privilege to be allowed the opportunity to participate in? your urological care.? Again, if you have any questions or concerns If you have any questions or concerns please do not hesitate to contact me. The office is [phone]. This note is constructed using voice recognition software. While every effort has been made to ensure accuracy pattern wheel maker errors may have been included. Yours sincerely, ABELARDO Hernandez Coding Level of Care Code Est Pt Level 3 (91109) Complex EM visit Add On G2211 Diagnoses BPH (benign prostatic hyperplasia) N40.0 Weak urinary stream R39.12 CPT Codes Post Residual Void - PVR CPT Code: 18673-Ibdv Void Residual by ultrasound ([id number])
== END 2024-07-02 10:30 | disposition home or self-care (01) ==
PROVIDERS: PCP Nurse Practitioner Family; Visit Provider Nurse Practitioner Family
DX: N40.0 Benign prostatic hyperplasia without lower urinary tract symptoms (principal); R39.12 Poor urinary stream; Z13.9 Encounter for screening, unspecified
CPT/HCPCS: 99213; G2211

== ENCOUNTER → 2024-07-02 09:20 | Outpatient (BNVA) | payer MEDICARE, SELFPAY | PROVIDERS: PCP Nurse Practitioner Family; Visit Provider Nurse Practitioner Family | DX: N40.1 Benign prostatic hyperplasia with lower urinary tract symptoms (principal); R33.8 Other retention of urine; R39.12 Poor urinary stream | CPT/HCPCS: 51798; 81003; 99212 ==

== ENCOUNTER 2024-07-17 08:14 | Day surgery (SDC) | payer MEDICARE, SELFPAY ==
[2024-07-15 12:27] VITALS: BMI 29.0
--- NOTE | 2024-07-16 12:58 | HO.ANESPROP2 ---
Documented by User: Kerri Isidro NP 07/16/24 12:58 HPI - Anesthesia Eval Consult details Narrative: 68yo M for Colonoscopy PMFSH Active Problems Active Problems: All Active Problems Weak urinary stream (Acute) Thumb injury (Acute) Screen for colon cancer (Acute) Incomplete bladder emptying (Acute) HTN (hypertension) (Acute) Hyperkalemia (Acute) Dyslipidemia (Acute) Physical exam (Acute) Screening PSA (prostate specific antigen) (Acute) Physical exam (Acute) Pelvic pain in male (Acute) Past Medical History Medical History HLD (hyperlipidemia) HTN (hypertension) Surgical History Surgical History Hx of colonoscopy Hx of squamous cell carcinoma excision Social History Social History Housing: House Are you a primary reservoir caretaker to a significant other at home: No Patient Tobacco Use Status: Former Tobacco user Tobacco use type: Smokeless Tobacco e-Cigarette/Vaping Use: Currently Using Second Hand Smoke Exposure: No Substance Use Type Other:: vapes Substance Use Frequency: Daily Have you been hit, kicked, punched, or otherwise hurt by someone within the past year? If so, by whom?: No Are you DNR?: No Advance Directives: No Advance Directives Information Provided: Yes Recently lost weight without trying: No Nutrition Risks: No Nutritional Risk Poor oral hygiene: No service: No Current occupational status: retired Cognitive needs: No Hearing needs: No Vision needs: Yes Meds Allergies Allergy/AdvReac Type Severity Reaction Status Date / Time No Known Allergies Allergy Mild NOT Verified 07/02/24 10:55 APPLICABLE Exam Height,Weight and Vital Signs: Height 5 ft 8 in Weight 86.636 kg Assessment and Plan Assessment Anesthesia Assessment: Chart Reviewed Documented by User: Kathia Yeh MD 07/17/24 09:24 [facility] Past Medical History Medical History HLD (hyperlipidemia) HTN (hypertension) Family History Family history of problems with anesthesia: No Surgical History Surgical History Hx of colonoscopy Hx of squamous cell carcinoma excision History of Problems with Anesthesia: No Social History Social History Housing: House Are you a primary reservoir caretaker to a significant other at home: No Patient Tobacco Use Status: Former Tobacco user Tobacco use type: Smokeless Tobacco e-Cigarette/Vaping Use: Currently Using Second Hand Smoke Exposure: No Substance Use Type Other:: vapes Substance Use Frequency: Daily Have you been hit, kicked, punched, or otherwise hurt by someone within the past year? If so, by whom?: No Are you DNR?: No Advance Directives: No Advance Directives Information Provided: Yes Recently lost weight without trying: No Nutrition Risks: No Nutritional Risk Poor oral hygiene: No service: No Current occupational status: retired Cognitive needs: No Hearing needs: No Vision needs: Yes Meds Allergies Allergy/AdvReac Type Severity Reaction Status Date / Time No Known Allergies Allergy Mild NOT Verified 07/02/24 10:55 APPLICABLE Exam Airway Mallampati Class: II TM Dist: >3cm Neck ROM: Full Heart: rrr Lungs: cta Assessment and Plan Assessment Anesthesia Assessment: Anesthesia Plan Discussed Final Anesthetic Review Family History of Problems with Anesthesia: No History of Problems with Anesthesia: No NPO: Yes ASA Class: III Final Preanesthetic Review: No Changes in Pt Med Stat, Meds/Allgs Chart Reviewed, Consent Obtained/Reviewed and Anes Risks/Benef Reviewed Patient Risk: Intermediate Procedure Risk: Low Anesthetic Plan Anesthetic Plan: MAC: Disposition: Standard PACU
[2024-07-17 08:23] VITALS: BMI 27.8
--- OUTSIDE RECORDS SUMMARY | 2024-07-17 08:29 | XMS_ITS ---
Author Organization [facility] Address [address] [place] [address] Care Team Providers Care Snowsport Instructor Name Role Phone GUERA [place] Primary Care Provider Evaristo Evans [phone] ALLERGIES No Known Allergies REASON FOR VISIT Patient presents today for a colon screening MEDICATIONS Medication SIG (Take, Route, Frequency, Duration) Notes Start Date End Date Status Rosuvastatin Calcium 10 MG take 1 tablet by mouth at bedtime Oral for 90 Active Irbesartan 75 MG take 1 tablet by mayco th once daily Oral for 90 Active SOCIAL HISTORY Tobacco Use: Social History Observation Description Date Details (start date - stop date) Former Smoker NA - NA Sex Assigned At : Social History Observation Description Sex Assigned At Unknown Tobacco Use/Smoking Question Answer Notes Patient is a former smoker How long has it been since you last smoked? 1-5 years Alcohol Screen Question Answer Notes Did you have a drink contain ing alcohol in the past year? Yes How often did you have a dri nk containing alcohol in the past year? 2 to 4 times a month (2 points) How many drinks did you have on a typical day when you were drinking in the past year? 1 or 2 drinks (0 point) How often did you have 6 or more drinks on one occasion in the past year? Never (0 point) Points 2 Interpretation Negative PROBLEMS Problem Type ICD Code Onset Dates Problem Status W/U Status Risk SNOMED Code Notes Problem History of adenomatous polyp of colon (Z86.010) Active confirmed History of adenomatous polyp of colon (005876713) VITAL SIGNS BMI 29.04 kg/m2 04/09/2024 Blood pressure systolic 00 mm Hg 04/09/20 24 Blood pressure diastolic 00 mm Hg 024 Height 68 in 04/09/2024 Weight 191 lbs 04/09/2024 Encounters Encounter Location Date Provider Diagnosis [facility] [address] [place] [address] 04/09/2024 Evaristo Worthington History of adenomato us polyp of colon Z86.010 ; Preprocedural examination Z01.818 and Encounter for screening for malignant neoplasm of colon Z12.11 ASSESSMENTS Encounter Date Diagnosis Assessment Notes Treatment Notes Treatment Clinical Notes 04/09/2024 History of adenomatous polyp of colon (ICD-10 - Z86.010) 04/09/2024 Preprocedural examination (ICD-10 - Z01.818) 04/09/2024 Encounter for screening for malignant neoplasm of colon (ICD-10 - Z12.11) PLAN OF TREATMENT Future Test Test Name Order Date COLONOSCOPY 04/09/2024 Next Appt Details Follow Up: prn, Reason: Provider Name:Evaristo Worthington , 07/17/2024 09:40:00 AM, [address] [place] [address], [phone], Progress Notes * Examination Category Sub-Category Detail Notes General Examination GENERAL APPEARANCE: pleasant , well nourished, well developed, in no acute distress HEAD: EYES: sclera non-icteric EARS: NOSE: THROAT: NECK/THYROID: no cervical lymphade nopathy, neck supple HEART: S1, S2 normal CHEST: LUNGS: clear to auscultatio n bilaterally ABDOMEN: normal bowel sounds, no guarding or rigidity, no guarding or rigidity, no masses palpable, soft, nontender, nondistended NEUROLOGIC: alert and oriented SKIN: nonjaundiced, no spi asaf angiomata EXTREMITIES: no edema PERIPHERAL PULSES: BACK: BREASTS: MUSCULOSKELETAL: MALE GENITOURINARY: LYMPH NODES: RECTAL EXAM: FEMALE GENITOURINARY: ORAL CAVITY: mucosa moist
--- OUTSIDE RECORDS SUMMARY | 2024-07-17 08:29 | XMS_ITS ---
Author Organization [facility] Address [address] [place] [address] Care Team Providers Care Bottling Supervisor Name Role Phone GUERA [place] Primary Care Provider Evaristo Evans [phone] REASON FOR VISIT screening, hx polyps Encounters Encounter Location Date Provider Diagnosis [facility] Outpatient [address] [place] [address] [id number] 07/17/2024 Evaristo Worthington PLAN OF TREATMENT Next Appt Details Provider Name:Evaristo Worthington , 07/17/2024 09:40:00 AM, [address] [place] [address], [phone],
--- OUTSIDE RECORDS SUMMARY | 2024-07-17 08:29 | XMS_ITS | Patient Health Record ---
Author Organization [facility] Address [address] [place] [address] Care Team Providers Care Truck Repair Supervisor Name Role Phone GUERA [place] Primary Care Provider Evaristo Evans [phone] ALLERGIES No Known Allergies REASON FOR REFERRAL No Information MEDICATIONS Medication SIG (Take, Route, Frequency, Duration) Notes Start Date End Date Status Rosuvastatin Calcium 10 MG take 1 tablet by mouth at bedtime Oral for 90 Active Irbesartan 75 MG take 1 tablet by mayco th once daily Oral for 90 Active IMMUNIZATIONS Vaccine Route Administration Date Status Comme nts Influenza Unknown 05/31/2018 Administered SOCIAL HISTORY Tobacco Use: Social History Observation [...] W/U Status Risk SNOMED Code Notes Problem Encounter for screening for malignant neoplasm of colon (Z12.11) Active confirmed [id number] Problem Preprocedural examination (Z01.818) Active confirmed [id number] Problem History of adenomatous polyp of colon (Z86.010) Active confirmed History of adenomatous polyp of colon (993820364) VITAL SIGNS Blood pressure diastolic 00 mm Hg 04/09/2024 Height 68 in 04/09/2024 Blood pressure systolic 00 mm Hg 04/09/2024 Weight 191 lbs 04/09/2024 BMI 29.04 kg/m2 04/09/2024 Encounters Encounter Location Date Provider Diagnosis [facility] Outpatient [address] [place] [address] [id number] 07/17/2024 Evaristo Worthington [facility] [address] [place] [address] 04/09/2024 Evaristo Worthington History of adenomato us [...] Future Test Test Name Order Date COLONOSCOPY 01/15/2019 COLONOSCOPY 04/09/2024 Next Appt Details Provider Name:Evaristo Worthington , 07/17/2024 09:40:00 AM, [address] [place] [address] , [place], [place], [phone], Insurance Providers Payer Name Payer Address Payer Phone Subscriber Number Group Number Insured Name Patient Relationship to Insured Coverage Start Date Coverage End Date [facility] [address] [place] [phone] [id number] CRUZITO GERARDO Self - patient is the insured MEDICAL (GENERAL) HISTORY Medical History History ICD Code Denies SC,DM,CVA,Lung disease,renal dise ase Neg. screening colonoscopy in 01/2008 Infectious colitis in 2007 Hypertension Screening colonoscopy in 04/2019 with a small tubular adenoma Surgical History Surgery Date(Month/Year) Squamous cell skin cancer removal
[2024-07-17 08:36] VITALS: BP 129/93; PULSE 92; RESP 18; TEMP 523.3; TEMP 974; O2SAT 96
[2024-07-17] MEDS: Lactated Ringers 1,000 ML 100 ML IVCONT (08:43)
[2024-07-17 11:08] VITALS: BP 90/63; PULSE 80; RESP 16; TEMP 36.1; O2SAT 94
--- NOTE | 2024-07-17 11:13 | PM.OP ---
Brief Operative Note Date of Service: 07/17/24 Pre-op diagnosis: Screening Post-op diagnosis: other (Polyps) Procedure: Colonoscopy to the cecum with bx/removal of polyp, and cold snare polypectomy x 2 Surgeon: Evaristo Worthington MD Anesthesia: MAC Was an Information Technology Program Manager used for this Procedure?: No Estimated blood loss (mL): 2.0 Pathology: other (A. Cecal polyps B. Transverse colon polyp) Condition: stable Disposition: PACU
[2024-07-17 11:23] VITALS: BP 99/68; PULSE 76; RESP 16; TEMP 36.1; O2SAT 96
--- NOTE | 2024-07-17 11:30 | OP_ITS ---
DATE OF SERVICE: 07/17/2024 SURGEON: Evaristo Worthington MD INDICATIONS: The patient presents for evaluation of colorectal cancer screening and personal history of tubular adenoma of the colon. Full consent was obtained from him for this, including risks of bleeding and perforation. PREOPERATIVE DIAGNOSIS: POSTOPERATIVE DIAGNOSIS: PROCEDURE PERFORMED: Colonoscopy to cecum with biopsy and removal of polyp, and cold snare polypectomies. ESTIMATED BLOOD LOSS: COMPLICATIONS: ANESTHESIA: Medication used, monitored anesthesia care. ASSISTANTS: SPECIMENS: PREOPERATIVE DIAGNOSES: Colorectal cancer screening and personal history of tubular adenoma of the colon. POSTOPERATIVE DIAGNOSES: Colorectal cancer screening and personal history of tubular adenoma of the colon, colon polyps, diverticulosis, and internal hemorrhoids. DESCRIPTION OF PROCEDURE: The patient was placed in the left lateral decubitus position. The digital rectal exam revealed no abnormalities. The Olympus video pediatric colonoscope was entered into the rectum and advanced easily to the cecum. Once in the cecum I did identify cecal pouch with appendiceal orifice, a normal-appearing ileocecal valve. There was transillumination of light deep in the right lower quadrant. The entire cecum was well visualized. In the cecum was a 3 mm polyp, which was biopsied and completely removed with cold biopsy forceps. Also, in the cecum was approximately 6 mm polyp, which was removed partially with cold snare polypectomy and remaining tissue was removed with a biopsy forceps. There was no sign of any residual polyp nor significant bleeding. The remainder of the cecum and ileocecal valve appeared normal. There was transillumination of light deep in the right lower quadrant. The scope was slowly withdrawn assessing all mucosal surfaces carefully. Preparation was excellent. In the transverse colon was an approximately 4 mm polyp, which was removed with cold snare polypectomy and recovered by suction. The polypectomy site appeared clean, without any sign of residual polyp nor significant bleeding. I did not visualize any other polyps, colitis, nor angiodysplasia. There was a mild amount of sigmoid diverticulosis. In the rectum, scope was retroflexed visualizing internal hemorrhoids, but no other pathology. The rectal mucosa appeared normal. The scope was straightened and withdrawn from the patient. He tolerated the procedure well and was returned to the recovery area in stable condition. IMPRESSION: 1. Colon polyps. 2. Diverticulosis. 3. Internal hemorrhoids. PLAN: The results of the pathology will be checked. I would recommend a repeat colonoscopy in 5 years. He will otherwise see me on a p.r.n. basis. MD MIRELA Escalante/JOSE / [id number]
== END 2024-07-17 12:05 | disposition home or self-care (01) ==
PROVIDERS: PCP Nurse Practitioner Family; Visit Provider Internal Medicine
PROC: 0DJD8ZZ Inspection of Lower Intestinal Tract, Via Natural or Artificial Opening Endoscopic (ICD-10-PCS; CPT 45378; principal; 2024-07-17 09:40)
DX: Z12.11 Encounter for screening for malignant neoplasm of colon (principal); Z86.0101 Personal history of adenomatous and serrated colon polyps; D12.0 Benign neoplasm of cecum; D12.3 Benign neoplasm of transverse colon; K57.30 Diverticulosis of large intestine without perforation or abscess without bleeding; K64.8 Other hemorrhoids; I10 Essential (primary) hypertension; E78.5 Hyperlipidemia, unspecified; Z79.899 Other long term (current) drug therapy; Z87.891 Personal history of nicotine dependence
CPT/HCPCS: 45385; 45380; 88305; J2003; J2704

== ENCOUNTER 2024-12-20 10:04 | Outpatient (REF) | payer MEDICARE, SELFPAY ==
--- OUTSIDE RECORDS SUMMARY | 2024-12-20 10:19 | XMS_ITS ---
Author Organization [facility] Address [address] [place] [address] Care Team Providers Care Freight Air Brake Fitter Name Role Phone GUERA [place] Primary Care Provider Evaristo Evans Unavailable [phone] Allergies No Known Allergies REASON FOR VISIT Patient presents today for a colon screening Medications Medication SIG (Take, Route, Frequency, Duration) Notes Start Date End Date Status Rosuvastatin Calcium 10 MG take 1 tablet by mouth at bedtime Oral for 90 Active Irbesartan 75 MG take 1 tablet by mayco th once daily Oral for 90 Active Social History Tobacco Use: Social History Observation Description Date Details (start date - stop date) Former Smoker NA - NA Tobacco Use/Smoking Question Answer Notes Patient is [...] Never (0 point) Points 2 Interpretation Negative Section Notes: Nonsmoker; no sig alcohol Problems Problem Type SNOMED Code ICD Code Onset Dates Problem Status W/U Status Risk Notes Problem History of adenomatous polyp of colon (914123536) History of adenomatous polyp of colon (Z86.010) Active confirmed Vital Signs Blood pressure systolic 00 mm Hg 04/09/20 24 Blood pressure diastolic 00 mm Hg 024 Height 68 in 04/09/2024 Weight 191 lbs 04/09/2024 BMI 29.04 kg/m2 04/09/2024 Encounters Encounter Location Date Provider Diagnosis [facility] [address] [place] [address] 04/09/2024 Evaristo Worthington History of adenomato us polyp of colon Z86.010 ; Preprocedural examination Z01.818 and Encounter for screening for malignant neoplasm of colon Z12.11 Assessments Encounter Date Diagnosis (ICD Code) Assessment Notes Treatment Notes Treatment Clinical Notes Section Notes 04/09/2024 History of adenomatous polyp of colon (ICD-10 - Z86.010) Overall, Cruzito Appears quite well. He is not having any new nor worrisome GI complaints. Given the previous history of a tubular adenoma removed just about 5 years ago and his excellent clinical appearance, I did recommend a followup screening colonoscopy. We did review the rationale for this in regard to colon cancer prevention. Full consent is obtained for this, including risks of bleeding and perforation. The procedure will be done with monitored anesthesia care. Cruzito was comfortable with this plan. Thank you again for allowing me to participate in Cruzito's care. I shall continue to keep you advised of his progress. 04/09/2024 Preprocedural examination (ICD-10 - Z01.818) Overall, Cruzito Appears quite well. He is not having any new nor worrisome GI complaints. Given the previous history of a tubular adenoma removed just about 5 years ago and his excellent clinical appearance, I did recommend a followup screening colonoscopy. We did review the rationale for this in regard to colon cancer prevention. Full consent is obtained for this, including risks of bleeding and perforation. The procedure will be done with monitored anesthesia care. Cruzito was comfortable with this plan. Thank you again for allowing me to participate in Cruzito's care. I shall continue to keep you advised of his progress. 04/09/2024 Encounter for screening for malignant neoplasm of colon (ICD-10 - Z12.11) Overall, Cruzito Appears quite well. He is not having any new nor worrisome GI complaints. Given the previous history of a tubular adenoma removed just about 5 years ago and his excellent clinical appearance, I did recommend a followup screening colonoscopy. We did review the rationale for this in regard to colon cancer prevention. Full consent is obtained for this, including risks of bleeding and perforation. The procedure will be done with monitored anesthesia care. Cruzito was comfortable with this plan. Thank you again for allowing me to participate in Cruzito's care. I shall continue to keep you advised of his progress. Plan Of Treatment Future Test Test Name Order Date COLONOSCOPY 04/09/2024 Next Appt Details Follow Up: prn, Reason: Progress Notes * DONN AGUILARNDOB: (68 yo M)Acc No.[id number]:04/09/2024 Progress Notes Patient:?CRUZITO AGUILAR Provider:?Evaristo Worthington MD :1955???Age:68 Y???Sex:Male Juan e:04/09/2024 Address:[address] [place] [address] Pcp:GUERA MA Subjective: * Chief Complaints: * ???Patient presents today fo r a colon screening * HPI: ???incontinence:? I saw Cruzito in the office today for evaluation of his personal history of a tubular adenoma of the colon and need for colorectal cancer screening. ?I last saw Cruzito in April 2019, at which time he underwent a followup screening colonoscopy With removal of a small tubular adenoma. He presently feels well. He enjoys a good appetite and denies any significant heartburn or dysphagia. He does have occasional reflux symptoms but this is usually in relation to doing some heavy lifting or other work outside. He denies any early satiety, nausea, vomiting, nor abdominal pain. His bowel movements have been regular and he denies any signs of bleeding. He denies any jaundice nor weight loss. He denies any known family history of colon cancer. ?Laboratories from November revealed a normal hemoglobin, chemistries, and LFTs. * ROS:?General/Constitutional:?Change in appetite?denies, denies.?Chills?denies, denies.?Fatigue?denies, denies.?Ophthalmologic:?Comments?all negative, all negative.?ENT:?Comments?all negative, all negative.?Respiratory:?hemoptysis?denies, denies.?Cough?denies, denies.?Cardiovascular:?Chest pain?denies, denies.?Orthopnea?denies, denies.?Gastrointestinal:?Comments?See HPI for details, See HPI for details.?Genitourinary:?Hematuria?denies, denies.?Dysuria?denies, denies.?Musculoskeletal:?Painful joints?denies, denies.?Weakness?denies, denies.?Skin:?Itching?denies, denies.?Rash?denies, denies.?Neurologic:?Headache?denies, denies.?Seizures?denies, denies.?Psychiatric:?Comments?all negative, all negative.? * Medical History:? * Surgical History:?Squamous c ell skin cancer removal * Hospitalization/Major Diagno stic Procedure:?No Hospitalization History. * Family History:?Father: dece ased, diagnosed with Heart disease.?Mother: , diagnosed with HTN (hypertension).? No colorectal cancer. * Social History:?Tobacco Use:?Tobacco Use/Smoking?Patient is a?former smoker,?How long has it been since you last smoked??1-5 years.?Drugs/Alcohol:?Alcohol Screen?Did you have a drink containing alcohol in the past year??Yes,?How often did you have a drink containing alcohol in the past year??2 to 4 times a month (2 points),?How many drinks did you have on a typical day when you were drinking in the past year??1 or 2 drinks (0 point),?How often did you have 6 or more drinks on one occasion in the past year??Never (0 point),?Points?2,?Interpretation?Negative.?Miscellaneous:?Marital status: . 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 ???Nonsmoker; no sig alcohol. * Medications:?TakingRosuvasta tin Calcium 10 MG Tablet take 1 tablet by mouth at bedtime Oral Irbesartan 75 MG Tablet take 1 tablet by mouth once daily Oral Medication List reviewed and reconciled with the patientTaking Rosuvastatin Calcium 10 MG Tablet take 1 tablet by mouth at bedtime Oral Taking Irbesartan 75 MG Tablet take 1 tablet by mouth once daily Oral Medication List reviewed and reconciled with the patient * Allergies:?N.K.D.A.yes[Aller gies Verified] Objective: * Vitals:?Wt: 191 lbs, Ht: 68 in, BMI:29.04 Index, BP: 00/00 mm Hg. * Examination: ???General Examination: ?GENERAL APPEARANCE:?pleasant, well nourished, well developed, in no acute distress.?EYES:?sclera non-icteric.?ORAL CAVITY:?mucosa moist.?NECK/THYROID:?no cervical lymphadenopathy, neck supple.?SKIN:?nonjaundiced, no spider angiomata.?HEART:?S1, S2 normal.?LUNGS:?clear to auscultation bilaterally.?ABDOMEN:?normal bowel sounds, no guarding or rigidity, no guarding or rigidity, no masses palpable, soft, nontender, nondistended.?EXTREMITIES:?no edema.?NEUROLOGIC:?alert and oriented.? Assessment: * Assessment: 1.?Preprocedural examination - Z01.818 (Primary)?2.?History of adenomatous polyp of colon - Z86.010?3.?Encounter for screening for malignant neoplasm of colon - Z12.11? Overall, Cruzito Appears quite well. He is not having any new nor worrisome GI complaints. Given the previous history of a tubular adenoma removed just about 5 years ago and his excellent clinical appearance, I did recommend a followup screening colonoscopy. We did review the rationale for this in regard to colon cancer prevention. Full consent is obtained for this, including risks of bleeding and perforation. The procedure will be done with monitored anesthesia care. Cruzito was comfortable with this plan. Thank you again for allowing me to participate in Cruzito's care. I shall continue to keep you advised of his progress. Plan: * Treatment: 2.?Encounter for screening for malignant neoplasm of colon?Procedure: COLONOSCOPY (Ordered for 04/09/2024)* with MACsched for 07/17/24 a t 10:40 ammiralax * Procedure Codes:?3017F COLOR ECTAL CA SCREEN DOC [id number] TOBACCO [id number] BP SCR NOT PRFRM REC REASON NOS * Preventive Medicine:? ??Counseling:?Care goal follow-up plan:?Above Normal BMI Follow-up?Giving encouragement to exercise,?BMI management provided?Yes.? * Follow Up:?prn * * Sign off status: Completed true * Provider:?Evaristo Worthington MD Date:? 024 Generated for Jose hernández/Laurel/eTransmitting on:?12/20/2024 10:18 AM EDT History and Physical Notes * HPI (History of Present Illness) Category Sub-Category Detail Notes Category Not es incontinence I saw Cruzito in the office today for evaluation of his personal history of a tubular adenoma of the colon and need for colorectal cancer screening. I last saw Cruzito in April 2019, at which time he underwent a followup screening colonoscopy With removal of a small tubular adenoma. He presently feels well. He enjoys a good appetite and denies any significant heartburn or dysphagia. He does have occasional reflux symptoms but this is usually in relation to doing some heavy lifting or other work outside. He denies any early satiety, nausea, vomiting, nor abdominal pain. His bowel movements have been regular and he denies any signs of bleeding. He denies any jaundice nor weight loss. He denies any known family history of colon cancer. Laboratories from November revealed a normal hemoglobin, chemistries, and LFTs. Examination Category Sub-Category Detail Notes Category Not es General Examination GENERAL APPEARANCE: pleasant , well [...]
[2024-12-20 13:22] LABS: MANUAL DIFF FLAG NO
[2024-12-20 13:36] LABS: Basophils Absolute Auto 0.1 X10*3/uL (0.0-0.2); Basophils Percent Auto 0.8 % (0-2); Eosinophils Absolute Auto 0.2 X10*3/uL (0.0-0.4); Eosinophils Percent Auto 2.6 % (0-4); Hematocrit 45.4 % (42.0-52.0); Hemoglobin 15.4 g/dl (14.0-18.0); Imm Gran Abs Auto 0.06 X10*3/uL (0.00-0.03); Imm Gran Pct Auto 0.8 % (0.0-0.4); Lymphocytes Percent Auto 42.3 % (20-40); Mean Corpuscular HGB Conc 33.9 g/dl (31.0-36.0); Mean Corpuscular Hemoglobin 31.7 pg (27.0-33.0); Mean Corpuscular Volume 93.4 fL (80.0-98.0); Mean Platelet Volume 8.7 fL (9.4-12.4); Monocytes Absolute Auto 0.5 X10*3/uL (0.1-1.2); Monocytes Percent Auto 7.1 % (2-11); Neutrophils Absolute Auto 3.3 x10*3/uL (2.0-8.3); Neutrophils Percent Auto 46.4 % (45-73); Platelet Count 253 X10*3/uL (160-400); Red Blood Count 4.86 X10*6/uL (4.60-5.80); Red Cell Distribution Width 12.7 % (11.0-16.0); White Blood Count 7.2 X10*3/uL (4.8-10.8)
[2024-12-20 13:39] LABS: Appearance Urine Clear; Color Urine Yellow; Glucose Urine UA Negative (Negative); Leukocyte Esterase Urine Negative (Negative); Nitrite Urine Negative (Negative); Urine Blood Negative (Negative); Urine Ketones Negative (Negative); Urine Protein Negative (Neg-Trace)
[2024-12-20 14:22] LABS: Prostate Specific Antigen 0.99 ng/mL (<0.05-4.0)
[2024-12-20 14:34] LABS: Alanine Aminotransferase 30 U/L (0-40); Albumin Level 4.5 g/dL (3.5-5.0); Alkaline Phosphatase 55 U/L (39-117); Anion Gap 12 (12-20); Aspartate Amino Transferase 28 U/L (5-37); Bilirubin Total 0.5 mg/dL (0.0-1.0); Blood Urea Nitrogen 16 mg/dL (9-16); Calcium 9.3 mg/dL (8.4-10.2); Carbon Dioxide 25 mmol/L (22-29); Chloride 107 mmol/L (96-108); Cholesterol 146 mg/dL (<200); Estimated Glomerular Filt Rate > 60; Glucose Fasting 106 mg/dL (60-99); HDL Cholesterol 52 mg/dL (>40); LDL Cholesterol Calculated 83 mg/dL (<100); Potassium 4.4 mmol/L (3.3-5.1); Sodium 140 mmol/L (135-145); TSH reflex Free T4 1.09 uIU/mL (0.32-4.0); Total Protein 7.3 g/dL (6.5-8.0); Triglycerides 58 mg/dL (<150); Vitamin D 25-OH Total 81.3 ng/mL (>30)
== END 2024-12-20 10:05 | disposition home or self-care (01) ==
LOC: HO.HMGCLDS 10:04
PROVIDERS: PCP Nurse Practitioner Family; Referring Provider Nurse Practitioner Family; Visit Provider Nurse Practitioner Family
DX: I10 Essential (primary) hypertension (principal); R33.9 Retention of urine, unspecified; Z12.5 Encounter for screening for malignant neoplasm of prostate
CPT/HCPCS: 36415; 80053; 80061; 81003; 82306; 84153; 84443; 85025

== ENCOUNTER 2024-12-26 12:51 | Outpatient (AMB) | payer MEDICARE, SELFPAY ==
--- NOTE | 2024-12-26 12:52 | A.OFFPC_ITS ---
Vital Signs 12/26/24 12:53 Height 5 ft 8 in Weight 190 lb BMI 28.9 BP 132/80 Respiration 14 Pulse 72 Pulse Source Pulse Oximeter Temp 97.8 F Temp Source Oral Pulse Oximetry (%) 98 Oxygen Delivery Method Room Air Intake Visit Reasons: PE Sifting Operator Required: No Accompanied by: Self / Same As Patient Allergies No Known Allergies Allergy (Mild, Verified 12/26/24 13:52) NOT APPLICABLE Medication List - Last Reconciled 12/26/24 [facility] irbesartan 75 mg PO DAILY rosuvastatin (Crestor) 10 mg PO BEDTIME 30 days Tobacco use date assessed: 12/26/24 Fall risk assessment: No Falls in past year Last assessed Fall Risk: 12/26/24 Dental Screening Dental Screen Date: 12/26/24 Did you have a dental visit in the last 12 months?: Yes Did you have a dental problem in the last 6 months where you did not have access to dental care?: No Was dental information given to patient?: Patient has dentist HPI PE HPI Details History of Present Illness The patient is a 69-year-old male presenting with chest pain, shortness of breath, abdominal pain, constipation, and diarrhea. He reports experiencing these symptoms but does not provide specific details regarding their onset or duration. The patient denies any suicidal or homicidal ideations. 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 He maintains regular follow-ups with a urologist, and his colonoscopy is current. Recent labs reveal an elevated fasting blood sugar level, and he has been informed about this. He declined a pneumonia vaccination offered during the visit. Health Maintenance - Colonoscopy is up to date - Educated on elevated fasting blood sug ar - Refused pneumonia vaccination sees urology Social History Review of Systems - Cardiovascular: Reports chest pain - Respiratory: Reports shortness of mirta th - Gastrointestinal: Reports abdominal pa in, constipation, diarrhea - Psychiatric: Denies suicidal ideation, denies homicidal ideation Physical Exam General: Cooperative, healthy appearing, comfortable, no acute distress and well developed Orientation: Patient oriented x3 Limitations: No limitations Head: Normal to inspection Ears: Hearing grossly normal bilaterally Nose: Normal external nose present Face and sinus: Normal facial exam Eyes: Appearance normal, both eyes and all related structures Neck: Normal visual inspection and Yes full ROM Respiratory: Normal respiratory effort and able to speak in complete sentences. Clear to auscultation bilaterally Cardiovascular: Regular rate and rhythm. Normal S1 and S2 GI: Normal to inspection. Soft to palpation and nontender Skin: No new lesions noted, history of squamous cell to face Neuro: Patient oriented x3 Extremities: Normal to inspection Results - Labs: Elevated fasting blood sugar Plan I will continue to evaluate the patient's chest pain and shortness of breath, a lthough no specific intervention was determined today. The abdominal pain, constipation, and diarrhea will be monitored, and further evaluation will be conducted as needed. Given the patient's history of squamous cell carcinoma, I will refer him to dermatology for a thorough skin evaluation. I have educated him on his elevated fasting blood sugar and advised lifestyle changes. Although he declined the pneumonia vaccination, I will discuss this again in future visits. Discussion Notes I discussed with the patient the importance of further evaluation for his chest pain and shortness of breath to determine the underlying cause. For his abdominal symptoms, I explained the need for monitoring and possible further assessment. I informed the patient about the significance of his elevated fastin g blood sugar and provided education on lifestyle modifications to manage this condition. The refusal of the pneumonia vaccination was noted, and I plan to revisit this discussion in the future. I also communicated the need for a dermatological referral to monitor his previous squamous cell carcinoma, emphasizing the importance of a full skin evaluation. Patient Instructions - Monitor symptoms of chest pain and amanda rtness of breath - Follow advice on managing elevated blo od sugar - Attend dermatology referral for skin e valuation - Maintain regular follow-ups with urolo gist - Consider pneumonia vaccination in futu re visits [facility] Medical History HLD (hyperlipidemia) HTN (hypertension) Surgical History Hx of colonoscopy Hx of squamous cell carcinoma excision Social History Housing: House Are you a primary medicare sales representative to a significant other at home: No Alcohol intake: current Alcohol intake frequency: a few times a week Alcohol type: wine Patient Tobacco Use Status: Former Tobacco user Tobacco use type: Smokeless Tobacco e-Cigarette/Vaping Use: Currently Using Second Hand Smoke Exposure: No service: No Current occupational status: retired Cognitive needs: No Hearing needs: No Vision needs: Yes (reading glasses) Questionnaire PHQ-9 Over the last 2 weeks, how often have you been bothered by any of the following problems? 1. Little interest or pleasure in doing things: not at all 2. Feeling down, depressed, or hopeless: not at all 3. Trouble falling or staying asleep, or sleeping too much: not at all 4. Feeling tired or having little energy: not at all 5. Poor appetite or overeating: not at all 6. Feeling bad about yourself - or that you are a failure or have let yourself or your family down: not at all 7. Trouble concentrating on things, such as reading the newspaper or watching television: not at all 8. Moving or speaking so slowly that other people could have noticed. Or the opposite - being so fidgety or restless that you have been moving around a lot more than usual: not at all 9. Thoughts that you would be better off or of hurting yourself in some way: not at all Total score: 0 Source: Developed by Drs. Evaristo Nice, Nirali Sampson, David Garces and colleagues, with an educational aletha from [employer]. Thrive Questionnaire Date Thrive assessed: 12/26/24 I am a: Patient What is your living situation today?: I choose not to answer this question Within the past 12 months, did the food you bought not last and you didn't have the money to get more?: I choose not to answer this question Within the past 12 months, did you worry whether your food would run out before you got money to buy more?: I choose not to answer this question Do you have trouble paying for medicines?: I choose not to answer this question Do you have trouble getting transportation to medical appointments?: I choose not to answer this question Do you have trouble paying your heating and electricity bill?: I choose not to answer this question Do you have trouble taking care of your child, family member or friend?: I choose not to answer this question Do you have trouble with day-to-day activities such as bathing, preparing meals, shopping, managing finances, etc.?: I choose not to answer this question Are you currently unemployed and looking for a job?: I choose not to answer this question Are you interested in more education?: I choose not to answer this question Please select the resources that you would like help with: None Currently or been in a relationship where the following occur: I choose not to answer THRIVE Score: 0 AUDIT C Alcohol Use Questionnaire (AUDIT-C) 1. How often do you have a drink containing alcohol?: 2-3 times a week 2. How many drinks containing alcohol do you have on a typical day when you are drinking?: 1 or 2 3. How often do you have six or more drinks on one occasion?: Never Total Score: 3 SABRA-7 AMB Questionnaire SABRA-7 Date ASBRA - 7 assessed: 12/26/24 Feeling nervous, anxious, or on edge: 0 = Not at all Not being able to stop or control worryin = Not at all Worrying too much about different things: 0 = Not at all Trouble relaxin = Not at all Being so restless that it is hard to sit still: 0 = Not at all Becoming easily annoyed or irritable: 0 = Not at all Feeling afraid as if something awful might happen: 0 = Not at all Total SABRA-7 score (0-4 normal; 5-9 mild; 10-14 moderate; 15-21 severe): 0 Source: Developed by Drs. Evaristo Nice, Nirali Sampson, David Garces and colleagues, with an educational aletha from [employer]. Physical exam (Primary Care) Vital Signs: Last Vital Signs Temp 97.8 F 12/26/24 12:53 Pulse 72 12/26/24 12:53 Resp 14 12/26/24 12:53 BP 132/80 12/26/24 12:53 Pulse Ox 98 12/26/24 12:53 Oxygen Delivery Method Room Air 12/26/24 12:53 BMI result Body Mass Index 28.9 Tobacco/Smoking Status: Tobacco use Status Tobacco use date assessed 12/26/24 12/26/24 13:01 Patient Tobacco Use Status Former Tobacco user 12/26/24 13:01 Tobacco use type Smokeless Tobacco 12/26/24 13:01 e-Cigarette/Vaping Use Currently Using 12/26/24 13:01 PHQ-9: PHQ-9 Score PHQ-9: Total score 0 12/26/24 13:01 Thrive Assessment: Date of Thrive Assessment Date Thrive assessed 12/26/24 12/26/24 13:01 Currently or been in a relationship where the following occur: I choose not to answer Coding Level of Care Code Est Pt Prev Care >65y(50174) Diagnoses Squamous cell carcinoma, face C44.320 Physical exam Z00.00 Elevated fasting blood sugar R73.01 Assessment & Plan Assessment & Plan (1) Squamous cell carcinoma, face: Code(s): C44.320 - Squamous cell carcinoma of skin of unspecified parts of face Category: Medical (2) Physical exam: Code(s): Z00.00 - Encounter for general adult medical examination without abnormal findings Category: Medical (3) Elevated fasting blood sugar: Code(s): R73.01 - Impaired fasting glucose Category: Medical Plan . Orders: Referrals Dermatology Referral C44.320 - Squamous cell carcinoma of skin of unspecified parts of face
[2024-12-26 12:53] VITALS: BP 132/80; PULSE 72; RESP 14; TEMP 36.6; O2SAT 98; BMI 28.9
--- OUTSIDE RECORDS SUMMARY | 2024-12-26 12:55 | XMS_ITS ---
Author Organization [facility] Address [address] [place] [address] Care Team Providers Care Punchboard Filling Machine Operator Name Role Phone GUERA MA Primary Care Provider Evaristo Evans Unavailable [phone] Allergies No Known Allergies REASON FOR VISIT [...] Problem History of adenomatous polyp of colon (293783461) History of adenomatous polyp of colon (Z86.010) Active confirmed Vital Signs Blood pressure systolic 00 mm Hg 04/09/20 24 Blood pressure diastolic 00 mm Hg 024 Height 68 in 04/09/2024 Weight 191 lbs 04/09/2024 BMI 29.04 kg/m2 04/09/2024 Encounters Encounter Location Date Provider Diagnosis [facility] [address] [place] [address] 04/09/2024 Evaristo Worthington History of adenomato us [...] again for allowing me to participate in Cruizto's care. I shall continue to keep you [...] Notes * DONN AGUILARNDOB: (68 yo M)Acc No.[id number]:04/09/2024 Progress Notes Patient:?CRUZITO AGUILAR Provider:?Evaristo Worthington MD :1955???Age:68 Y???Sex:Male Juan e:04/09/2024 Address:[address] [place] [address] Pcp:GUERA MA Subjective: * Chief Complaints: * [...] year??Never (0 point),?Points?2,?Interpretation?Negative.?Miscellaneous:?Marital status: . 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 ???Nonsmoker; no sig alcohol. [...] Procedure Codes:?3017F COLOR ECTAL CA SCREEN DOC [id number] TOBACCO [id number] BP SCR NOT PRFRM REC REASON NOS * Preventive Medicine:? ??Counseling:?Care goal follow-up plan:?Above Normal BMI Follow-up?Giving encouragement to exercise,?BMI management provided?Yes.? * Follow Up:?prn * * Sign off status: Completed true * Provider:?Evaristo Worthington MD Date:? 024 Generated for Jose hernández/Laurel/eTransmitting on:?12/26/2024 12:55 PM EDT History and Physical Notes * HPI [...]
== END 2024-12-26 13:27 | disposition home or self-care (01) ==
LOC: HO.HMCC 12:52
PROVIDERS: PCP Nurse Practitioner Family; Visit Provider Nurse Practitioner Family
DX: C44.320 Squamous cell carcinoma of skin of unspecified parts of face (principal); Z00.00 Encounter for general adult medical examination without abnormal findings; R73.01 Impaired fasting glucose

== ENCOUNTER → 2024-12-26 12:51 | Outpatient (BNVA) | payer MEDICARE, SELFPAY | PROVIDERS: PCP Nurse Practitioner Family; Visit Provider Nurse Practitioner Family | DX: Z00.00 Encounter for general adult medical examination without abnormal findings (principal); C44.320 Squamous cell carcinoma of skin of unspecified parts of face; R73.01 Impaired fasting glucose; Z28.21 Immunization not carried out because of patient refusal | CPT/HCPCS: 96127; 99397 ==

== ENCOUNTER 2025-01-01 09:20 | Outpatient (AMB) | payer MEDICARE, SELFPAY ==
--- NOTE | 2025-01-01 09:23 | A.OFFVIS_ITS ---
Intake Visit Reasons: 6m PSA/PVR(set) Intake Note: Pt presents to the office today for a 6 month follow up/PSA/PVR Urology meds:None Blood thinners:None PVR: Allergies No Known Allergies Allergy (Mild, Verified 01/01/25 10:02) NOT APPLICABLE Medication List - Last Reconciled 01/01/25 by ABELARDO Hernandez irbesartan 75 mg PO DAILY rosuvastatin (Crestor) 10 mg PO BEDTIME 30 days HPI Comments Details: Edward is a pleasant 69-year-old male patient of Dr. Lanza. He presents to the office today for a follow-up of his lower urinary tract symptoms. In discussion with the patient today he reports to be doing and feeling well. He denies having had any bothersome urinary issues or concerns since his last office visit here approximately 6 months ago. He does continue to experience episodes of weak urinary stream however feels he is managing well independently. In office urinalysis results reviewed with the patient today. PVR 11 mL. He otherwise denies any bothersome urinary issues. Previous workup has included a retroperitoneal ultrasound 12/20 noting bilateral kidneys with no lesions, calculi, or hydronephrosis noted. The bladder is well distended and normal. Bilateral ureteral jets are demonstrated. Pre void bladder volume approximately 600ml pre void bladder volume approximately 70 mL. Prostate volume approximately 45ml. Recent PSA results reviewed with the patient today as noted and trended below. PSAs: 09/20 1.0, 11/19 1.1, 08/22 1.2, 11/21 0.8, 12/22 1.0 Patient denies urinary urgency, urinary frequency, incontinence, nocturia, hematuria, dysuria, foul smelling urine, flank pain, fever, and or chills. He is happy with his current voiding parameters. He does endorse to waking up one time per night to urinate however does not find this bothersome. We discussed further treatment options to include trial of alpha-mendel and or in office cystoscopy for further assessment evaluation. He does not wish to undergo further treatment options at this time. He otherwise offers no other issues or concerns at this time. [facility] Medical History HLD (hyperlipidemia) HTN (hypertension) Surgical History Hx of colonoscopy Hx of squamous cell carcinoma excision Social History Housing: House Are you a primary disabilities caregiver to a significant other at home: No Alcohol intake: current Alcohol intake frequency: a few times a week Alcohol type: wine Patient Tobacco Use Status: Former Tobacco user Tobacco use type: Smokeless Tobacco e-Cigarette/Vaping Use: Currently Using Second Hand Smoke Exposure: No service: No Current occupational status: retired Cognitive needs: No Hearing needs: No Vision needs: Yes (reading glasses) Review of Systems Const Reports no additional complaints Eyes Reports no additional complaints ENT Reports no additional complaints Card Reports no additional complaints Resp Reports no additional complaints GI Reports no additional complaints Reports as per HPI Musc Reports no additional complaints Neuro Reports no additional complaints Psych Reports no additional complaints Endo Reports no additional complaints Van/Lymph Reports no additional complaints Aller/Immun Reports no additional complaints Physical Exam Const General: cooperative, healthy appearing, comfortable, no acute distress, well developed, alert and awake Orientation/consciousness: patient oriented x3 Limitations: no limitations HEENT Head: Yes normal to inspection, Yes normocephalic and Yes atraumatic Ears: hearing grossly normal bilaterally Eyes General: appearance normal, both eyes and all related structures Neck Neck: Yes normal visual inspection and Yes trachea midline Chest Chest palpation & inspection: normal inspection of the chest Resp Effort & Inspection: normal respiratory effort and able to speak in complete sentences Cardio Rate: regular rate GI Inspection: Yes normal to inspection General: Yes no CVA tenderness Back/Spine/Pelvis Back: no CVA tenderness Skin General skin exam: no rashes or lesions noted Neuro General: patient oriented x3 Extrem General: Yes normal to inspection Psych Appearance: grossly normal and well kempt Mental Status: mental status grossly normal Speech and movement: Normal speech and movement present and Clear speech present Affect: normal affect Attitude: cooperative Thought process: Normal thought process present Thought content: Normal thought content present Insight: Fair insight present (Psych) Judgement: Fair judgement present (Psych) Office Procedures Post Void Residual Post Residual Void Post Void Residual (PVR): 11 [id number] Void Residual by ultrasound Results AMB Urinalysis, Automated UA Leukoctes 0 Shabnam/uL Last Edit by Annel Coleman CMA on 01/01/25 09:32 UA Nitrite Negative Last Edit by Annel Coleman CMA on 01/01/25 09:32 UA Urobilinogen 0.2 mg/dL Last Edit by Annel Coleman CMA on 01/01/25 09:32 UA Protein 15 mg/dL Last Edit by Annel Coleman CMA on 01/01/25 09:32 UA pH 6.0 Last Edit by Annel Coleman CMA on 01/01/25 09:32 UA Blood 0 Aman/uL Last Edit by Annel Coleman, ADAM on 01/01/25 09:32 UA Specific Huron 1.020 Last Edit by Annel Coleman, ADAM on 01/01/25 09:32 UA Ketone Negative Last Edit by Annel Coleman CMA on 01/01/25 09:32 UA Bilirubin 0 mg/dL Last Edit by Annel Coleman CMA on 01/01/25 09:32 UA Glucose 0 mg/dL Last Edit by Annel Coleman CMA on 01/01/25 09:32 Results Reviewed Results Reviewed: Laboratory Last Values Urine pH (Auto) 6.0 01/01/25 09:26 Specific Huron (Auto) 1.020 01/01/25 09:26 Urine Protein (Auto) 15 mg/dL 01/01/25 09:26 Glucose (UA)(Auto) 0 mg/dL 01/01/25 09:26 Urine Ketones (Auto) Negative 01/01/25 09:26 Urine Blood (Auto) 0 Aman/uL 01/01/25 09:26 Urine Nitrite (Auto) Negative 01/01/25 09:26 Urine Bilirubin (Auto) 0 mg/dL 01/01/25 09:26 Urine Urobilinogen (Auto) 0.2 mg/dL 01/01/25 09:26 Leukocyte Esterase (Auto) 0 Shabnam/uL 01/01/25 09:26 Assessment & Plan Assessment & Plan (1) Weak urinary stream: Code(s): R39.12 - Poor urinary stream Category: Medical (2) BPH (benign prostatic hyperplasia): Code(s): N40.0 - Benign prostatic hyperplasia without lower urinary tract symptoms Plan In office urinalysis results reviewed with the patient today; as noted above. [id number]. Recent PSA results reviewed with the patient today; as noted above He reports be happy with current voiding parameters. Will continue with surveillance monitoring as patient does not wish to undergo further treatment options at this time. Discussed possible near future in office cystoscopy for further assessment evaluation. Follow-up in 1 year with PVR and PSA; or sooner with any issues, concerns, and or questions. Orders: Orders AMB Post Void Residual by ultrasound Today R33.9 - Retention of urine, unspecified Prostate Specific Antigen 1 Year R39.12 - Poor urinary stream AMB Urinalysis Automated Today R33.9 - Retention of urine, unspecified Patient Instructions: The patient had an opportunity to ask questions regarding the treatment plan. All questions were answered. Physical exam, labs, and imaging were discussed and reviewed in detail. As well as risks, benefits, and discussion of treatment choices. No major barriers to understanding were identified. The patient expressed understanding and agreement with the above treatment plan. The patient was made aware they should contact our office by phone for worsening of their current condition, the appearance of new symptoms, or with any questions or concerns. Compliance is encouraged with any medications and follow up testing that is ordered. It is a privilege to be allowed the opportunity to participate in? your urological care.? Again, if you have any questions or concerns If you have any questions or concerns please do not hesitate to contact me. The office is [phone]. This note is constructed using voice recognition software. While every effort has been made to ensure accuracy certified social workers in health care errors may have been included. Yours sincerely, ABELARDO Hernandez Coding Level of Care Code Est Pt Level 3 (06655) Complex EM visit Add On G2211 Diagnoses Weak urinary stream R39.12 BPH (benign prostatic hyperplasia) N40.0 CPT Codes Post Residual Void - PVR CPT Code: 68114-Adcy Void Residual by ultrasound ([id number])
--- OUTSIDE RECORDS SUMMARY | 2025-01-01 09:43 | XMS_ITS ---
Author Organization [facility] Address [address] [place] [address] Care Team Providers Care Riveter Helper Name Role Phone GUERA [place] Primary Care Provider Evaristo Evans Unavailable [phone] Allergies No Known Allergies REASON FOR VISIT [...] Problem History of adenomatous polyp of colon (595166115) History of adenomatous polyp of colon (Z86.010) Active confirmed Vital Signs Blood pressure systolic 00 mm Hg 04/09/20 24 Blood pressure diastolic 00 mm Hg 024 Height 68 in 04/09/2024 Weight 191 lbs 04/09/2024 BMI 29.04 kg/m2 04/09/2024 Encounters Encounter Location Date Provider Diagnosis [facility] [address] [place] [address] 04/09/2024 Evaristo Worthington History of adenomato us [...] Notes * DONN AGUILARNDOB: (68 yo M)Acc No.[id number]:04/09/2024 Progress Notes Patient:?CRUZITO AGUILAR Provider:?Evaristo Worthington MD :[id number]???Age:68 Y???Sex:Male Juan e:04/09/2024 Address:[address] [place] [address] Pcp:GUERA MA Subjective: * Chief Complaints: * [...] year??Never (0 point),?Points?2,?Interpretation?Negative.?Miscellaneous:?Marital status: . 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 ???Nonsmoker; no sig alcohol. [...] Procedure Codes:?3017F COLOR ECTAL CA SCREEN DOC [id number] TOBACCO [id number] BP SCR NOT PRFRM REC REASON NOS * Preventive Medicine:? ??Counseling:?Care goal follow-up plan:?Above Normal BMI Follow-up?Giving encouragement to exercise,?BMI management provided?Yes.? * Follow Up:?prn * * Sign off status: Completed true * Provider:?Evaristo Worthington MD Date:? 024 Generated for Jose hernández/Laurel/eTransmitting on:?01/01/2025 09:42 AM EDT History and Physical Notes * [...]
== END 2025-01-01 10:08 | disposition home or self-care (01) ==
LOC: HO.HUSH 09:21
PROVIDERS: PCP Nurse Practitioner Family; Visit Provider Nurse Practitioner Family
DX: R39.12 Poor urinary stream (principal); N40.0 Benign prostatic hyperplasia without lower urinary tract symptoms; R33.9 Retention of urine, unspecified
CPT/HCPCS: 99213; G2211

== ENCOUNTER → 2025-01-01 09:20 | Outpatient (BNVA) | payer MEDICARE, SELFPAY | PROVIDERS: PCP Nurse Practitioner Family; Visit Provider Nurse Practitioner Family | DX: N40.1 Benign prostatic hyperplasia with lower urinary tract symptoms (principal); R39.12 Poor urinary stream; R33.8 Other retention of urine | CPT/HCPCS: 51798; 81003; 99212 ==